=== PATIENT | male | born 1990 | race Caucasian/White ===

== ENCOUNTER 2016-03-24 17:00 | Emergency (ER) | payer BC, OTHER ==
[~2016-03-24] VITALS: Ht 180.3 cm; Wt 97.5 kg
--- NOTE | 2016-03-24 17:27 | ED GU-Male ---
General Chief Complaint: -Male Stated Complaint: SWOLLEN TESTICLE Nursing Triage Note: ARRIVED VIA AMB TO ROOM 05 WEARING A MASK. PT COMPLAINS OF RIGHT TESTICLE EDEMA, SORE THROAT AND STUFFY NOSE FOR 3 DAYS. Source: patient Exam Limitations: no limitations History of Present Illness Time seen by provider: 17:25 Initial Comments To ER with right testicular pain that began yesterday intermittently and has been constant today. He does have a history of this about 8 years ago where he states that the right testicle swelled significantly and was quite tender but resolved with antibiotics. He also reports sore throat and runny nose for 3 days. No fevers. No tenderness of the parotid glands or abdominal pains. He was vaccinated as far as he knows as a child against mumps. Timing/Duration: other (2 weeks) Severity/Quality: moderate Location: unknown Radiation: none Associated Symptoms: No abdominal pain, No dysuria, No fever/chills, No nausea/ vomiting, No polyuria, No urinary frequency Allergies and Home Medications Allergies Coded Allergies: No Known Drug Allergies (Unverified , 03/24/16) Constitutional: see HPINo chills, No fever EENTM: see HPI Respiratory: no symptoms reported Cardiovascular: no symptoms reported Gastrointestinal: No abdominal pain Genitourinary: see HPIdenies burning, pain Musculoskeletal: no symptoms reported Skin: no symptoms reported Psychiatric/Neurological: No Symptoms Reported Endocrine: No Symptoms Reported Hematologic/Lymphatic: No Symptoms Reported Past Lbsodac-Tqpmji-Rvrtle Hx Patient Social History Recent Foreign Travel: No Contact w/Someone Who Travel: No Recent Infectious Disease Expo: No Recent Hopitalizations: No Surgeries HX Surgeries: No Respiratory Hx Respiratory Disorders: No Cardiovascular Hx Cardiac Disorders: No Neurological Hx Neurological Disorders: No Genitourinary Hx Genitourinary Disorders: No Gastrointestinal Hx Gastrointestinal Disorders: No Musculoskeletal Hx Musculoskeletal Disorders: No Endocrine Hx Endocrine Disorders: No Cancer Hx Cancer: Yes Cancer: Skin Psychosocial Hx Psychiatric Problems: No Integumentary HX Skin/Integumentary Disorder: Yes (HX OF STAFF BACK OF NECK. ) Skin/Integumentary Disorders: Eczema Physical Exam Vital Signs Vital Sign - Last 12Hours 03/24/16 17:00 Temp 98.0 Pulse 71 Resp 18 B/P 134/87 Pulse Ox 97 Capillary Refill : Less Than 3 Seconds General Appearance: WD/WN no apparent distress HEENT: PERRL/EOMI normal ENT inspection Neck: non-tender full range of motion Respiratory: normal breath sounds no respiratory distress no accessory muscle use Gastrointestinal: normal bowel sounds non tender soft Male: normal genitalia testicular tenderness other (no testicular swelling that is apparent or erythema.) Extremities: normal range of motion non-tender Neurologic/Psychiatric: alert normal mood/affect oriented x 3 Skin: normal color warm/dry Progress/Results/Core Measures Results/Orders Lab Results Laboratory Tests Test 03/24/16 17:30 Range/Units Urine Amorphous Sediment FEW ROBBIN PHOSPHATE H /LPF Urine Bacteria NEGATIVE /HPF Urine Bilirubin NEGATIVE NEGATIVE Urine Casts NONE /LPF Urine Clarity CLEAR Urine Color YELLOW Urine Crystals PRESENT H /LPF Urine Culture Indicated NO Urine Glucose (UA) NEGATIVE NEGATIVE Urine Ketones NEGATIVE NEGATIVE Urine Leukocyte Esterase 1+ H NEGATIVE Urine Mucus LARGE H /LPF Urine Nitrite NEGATIVE NEGATIVE Urine Protein NEGATIVE NEGATIVE Urine RBC NONE /HPF Urine RBC (Auto) NEGATIVE NEGATIVE Urine Specific [place] 1.010 L 1.016-1.022 Urine Urobilinogen 1 NORMAL MG/DL Urine WBC 0-2 /HPF Urine pH 8 5-9 My Orders Orders-ALESHA CEDEÑO APRN Ua Culture If Indicated (03/24/16 17:16) Us Scrotum (Testicle) 35120 (03/24/16 17:16) Neis Will Dna Urine Test (03/24/16 18:00) Chlamydia Dna (03/24/16 18:00) Sulfamethoxazole/Trimet Ds Tab (Bactrim (03/24/16 18:15) Vital Signs/I&O Vital Sign - Last 12Hours 03/24/16 17:00 Temp 98.0 Pulse 71 Resp 18 B/P 134/87 Pulse Ox 97 Blood Pressure Mean: 103 Departure Communication Progress Notes 1738-I discussed the case with Margie Coles from [facility] of [facility] environment. Given the patient's symptoms she does recommend testing with a buccal swab for mumps and a nasopharyngeal respiratory viral panel. She does not suggest drying and IgG/IgM titer for mumps since he isvaccinated Impression Impression: Primary Impression: Epididymoorchitis Disposition: 01 HOME, SELF-CARE Condition: Improved Departure-Patient Inst. Decision time for Depature: 18:00 Referrals: NO,LOCAL PHYSICIAN (PCP) Primary Care Physician Patient Instructions: Epididymitis (DC) Add. Discharge Instructions: 1. Antibiotics as directed 2. Limit contact with other people especially those were not immunized against mumps for the next week until we call you with results. 3. If your urine grows a bacteria that needs a different antibiotic we will call you 4. Antibiotic as directed All discharge instructions reviewed with patient and/or family. Voiced understanding. Scripts Tramadol HCl (Ultram)50 Mg [id number] Mg PO Q6H PRN PAIN #10 TAB Prov:ALESHA CEDEÑO COLD STORAGE WORKER 03/24/16 Sulfamethoxazole/Trimethoprim (Bactrim Ds Tablet)1 Each Tablet1 Each PO BID #20 TAB Prov:ALESHA CEDEÑO C[employer] STORAGE WORKER 03/24/16 ALESHA CEDEÑO APRN Mar 24, 2016 17:27
[2016-03-24 17:38] LABS: BILIRUBIN,URINE NEGATIVE (NEGATIVE); KETONES,URINE NEGATIVE (NEGATIVE); LEUKOCYTE ESTERASE ,URINE 1+ (NEGATIVE); NITRITE,URINE NEGATIVE (NEGATIVE); PH,URINE 8 (5-9); PROTEIN,URINE NEGATIVE (NEGATIVE); UROBILINOGEN,URINE 1 MG/DL (NORMAL)
[2016-03-24 17:49] LABS: WBC,URINE 0-2 /HPF
[2016-03-24] MEDS ORDERED: TRAM-42 PO (18:04)
[2016-03-24] MEDS ORDERED: SULF1TAB35 PO (18:04)
--- NOTE | 2016-03-24 18:07 | Diagnostic Imaging Report ---
INDICATION: Right testicular pain and swelling. COMPARISON: None. TECHNIQUE: Routine grayscale color-flow and duplex evaluation of the bilateral intrascrotal contents was performed. FINDINGS: Right testicle measures 4.3 x 2.5 x 3.6 cm and the left measures 4.3 x 2.5 x 3.8 cm. Parenchyma of the right testicle is heterogeneous. No focal mass is identified. Color flow images, however, show significant hyperemia to the testicular parenchyma, as well as the right epididymis. Findings are consistent with epididymoorchitis. Small right-sided hydrocele is also noted. Parenchyma of the left testicle is homogeneous. No focal masses are seen on the left. Color flow images show normal vascularity to the left testicle and left epididymis. IMPRESSION: Sonographic findings consistent with right-sided epididymal orchitis. Dictated by: Dictated on workstation # [id number]
[2016-03-24] MEDS ORDERED: TRIM/SULFAMETH 160/800 (SEPTRA DS) TAB PO ONE (18:15)
[2016-03-24 18:17] VITALS: BP 128/82
[2016-03-28 08:46] LABS: NEISSERIA GONORRHEA DNA URINE Negative (Negative)
[2016-03-28 08:47] LABS: CHLAMYDIA DNA PROBE PT Negative (Negative)
== END 2016-03-24 18:17 | disposition home or self-care (01) ==
LOC: ER 17:03
DX: N45.3 Epididymo-orchitis (principal); J02.9 Acute pharyngitis, unspecified
CPT/HCPCS: 36415; 76870; 81000; 87491; 87591; 87798; 99282

== ENCOUNTER 2018-05-19 04:11 | Emergency (ER) | payer BC, OTHER ==
[~2018-05-19] VITALS: Ht 180.3 cm; Wt 95.3 kg
[~2018-05-19 04:11] MED LIST: SULF1TAB35 PO; TRAM-42 PO
--- OUTSIDE RECORDS SUMMARY | 2018-05-19 04:17 | XMS REPORT | Clinical Summary ---
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 Name Role Phone PP Unavailable Allergies No Known Allergies Medications End Date Status Medication Sig Dispensed Refills Start Date Active hydrocodone-acetaminophen take 1 - 2 30 0 (NORCO) 5-325 MG Tablet by 2 ORAL route every 4 - 6 hours as needed for pain Active .reconcile (MEDICATION No Sig 1 0 LIST IMPORTED) 3 Active Problems Not on file Social History Date Tobacco Use Types Packs/Day Years Used Current Every Day Smoker Comments: Smoking History Packs/day: Daily/Chewing tobacco/2 can Sex Assigned at Date Recorded Not on file Industry Job Start Date Occupation Not on file Not on file Not on file Travel End Travel History Travel Start No recent travel history available. 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
[2018-05-19] MEDS ORDERED: PANTOPRAZOLE 40 MG (PROTONIX) VIAL IV STA (05:28)
[2018-05-19] MEDS ORDERED: LACTATED RINGERS 1,000 ML IV ONE (05:28)
[2018-05-19] MEDS ORDERED: ONDANSETRON 4 MG/2 ML (SDV) Z0FRAN IVP ONE (05:30)
--- NOTE | 2018-05-19 05:51 | ED Abdominal Pain ---
General Chief Complaint: Abdominal/GI Problems Stated Complaint: STOMACH PAIN Nursing Triage Note: Pt c/o epigastric abd pain x1 month, worse tonight. Pt reports pain is worse with movement. Pt also reports vomiting after eating and feeling of fullness. Sepsis Screen: No Definite Risk Source of Information: Patient History of Present Illness Date Seen by Provider: May 19, 2018 Time Seen by Provider: 05:15 Initial Comments PT ARRIVES VIA POV FROM HOME C/O EPIGASTRIC PAIN AND NAUSEA AND VOMITING X 1 MONTH STATES PAIN COMES AND GOES, BUT IS WORSE TONIGHT AND IS "CONSTANT" TONIGHT--BUT IS NOT PRESENT NOW PAIN INCREASES WITH ACTIVITY STATES HE "CAN'T KEEP ANYTHING DOWN" FOR A MONTH, STATES HE "VOMITS SOON HE EATS ANYTHING"---BUT HAS HAD PIZZA TODAY FOR LUNCH AND ATE SUB SANDWICH TONIGHT FOR DINNER AND KEPT THOSE DOWN. PT HAS ALSO BEEN DRINKING FLUIDS, INCLUDING ALCOHOL AND HAS KEPT THEM DOWN STATES HE STILL FEELS HUNGRY --NO LOSS OF APPETITE PT DRINKS ALCOHOL ON A REGULAR BASIS--"2 OR 3 BEERS AFTER WORK" --STATES HE HAS ONLY HAD 1 BEER TONIGHT NO PROBLEMS URINATING AND IS VOIDING A NORMAL AMOUNT NO DIARRHEA OR CONSTIPATION NO FEVER NO HISTORY OF PRIOR GI PROBLEMS HAS NOT TAKEN ANYTHING FOR SYMPTOMS HAS NOT SOUGHT CARE UNTIL TODAY [facility]CP[facility] Allergies and Home Medications Allergies Coded Allergies: No Known Drug Allergies (Unverified , 03/24/16) Home Medications Sulfamethoxazole/Trimethoprim 1 Each Tablet, 1 EACH PO BID Prescribed by: ALESHA CEDEÑO on 03/24/161803 Tramadol HCl 50 Mg Tablet, 50 MG PO Q6H PRN for PAIN Prescribed by: ALESHA CEDEÑO on 03/24/161803 Patient Home Medication List Home Medication List Reviewed: Yes Review of Systems Review of Systems Constitutional: no symptoms reported; No weight loss Respiratory: No Symptoms Reported Cardiovascular: No Symptoms Reported Gastrointestinal: See HPI, Abdominal Pain; Denies Constipated, Denies Diarrhea ; Nausea; Denies Poor Appetite, Denies Poor Fluid Intake; Vomiting Genitourinary: No Symptoms Reported Musculoskeletal: no symptoms reported Skin: no symptoms reported Psychiatric/Neurological: No Symptoms Reported Endocrine: No Symptoms Reported Hematologic/Lymphatic: No Symptoms Reported Past Urtwsvk-Sapnjv-Atpnmp Hx Patient Social History Alcohol Use: Regular Use ("2 OR 3 BEERS" AFTER WORK AND ALSO DRINKS ON WEEKENDS ) Recreational Drug Use: Yes (HC) Smoking Status: Never a Smoker Type Used: Smokeless Tobacco (CHEWS TOBACCO DAILY) Recent Foreign Travel: No Contact w/Someone Who Travel: No Recent Infectious Disease Expo: No Recent Hopitalizations: No Seasonal Allergies Seasonal Allergies: No Past Medical History Surgeries: No Respiratory: No Cardiac: No Neurological: No Genitourinary: No Gastrointestinal: No Musculoskeletal: No Endocrine: No Cancer: No Psychosocial: No Integumentary: Yes Eczema Blood Disorders: No Physical Exam Vital Signs Vital Signs - First Documented 05/19/18 04:50 Temp 97.9 Pulse 81 Resp 18 B/P (MAP) 130/93 (105) Pulse Ox 99 O2 Delivery Room Air Capillary Refill : Less Than 3 Seconds Height/Weight/BMI Height: 5'11.00" Weight: 210lbs. oz. 95.921418fb; BMI Method:Stated General Appearance: WD/WN, no apparent distress, other (SLEEPING VERY SOUNDLY, LAYING COMPLETELY OUTSTRETCHED, HAT OVER FACE, ARMS /HANDS RESTING ON UPPER ABDOMEN. WALKS UPRIGHT AND MOVES WITHOUT DIFFICULTY ) Respiratory: normal breath sounds, no respiratory distress, no accessory muscle use Cardiovascular: regular rate, rhythm, no murmur Gastrointestinal: normal bowel sounds, soft; No distended, No guarding, No rebound; tenderness (EPIGASTRIC); No hernia Extremities: normal inspection Back: normal inspection, no CVA tenderness Neurologic/Psychiatric: inspector watch parts II-XII nml as tested, no motor/sensory deficits, alert, normal mood/affect, oriented x 3 Skin: normal color, warm/dry, tattoos/piercings Progress/Results/Core Measures Results/Orders Lab Results Laboratory Tests Test 05/19/18 05:45 05/19/18 05:48 Range/Units Urine Color YELLOW Urine Clarity CLEAR Urine pH 6.5 5-9 Urine Specific [place] 1.010 L 1.016-1.022 Urine Protein NEGATIVE NEGATIVE Urine Glucose (UA) NEGATIVE NEGATIVE Urine Ketones NEGATIVE NEGATIVE Urine Nitrite NEGATIVE NEGATIVE Urine Bilirubin NEGATIVE NEGATIVE Urine Urobilinogen NORMAL NORMAL MG/DL Urine Leukocyte Esterase NEGATIVE NEGATIVE Urine RBC (Auto) NEGATIVE NEGATIVE Urine RBC NONE /HPF Urine WBC NONE /HPF Urine Squamous Epithelial Cells 0-2 /HPF Urine Crystals NONE /LPF Urine Bacteria NEGATIVE /HPF Urine Casts NONE /LPF Urine Mucus SMALL H /LPF Urine Culture Indicated NO Urine Opiates Screen NEGATIVE NEGATIVE Urine Oxycodone Screen NEGATIVE NEGATIVE Urine Methadone Screen NEGATIVE NEGATIVE Urine Propoxyphene Screen NEGATIVE NEGATIVE Urine Barbiturates Screen NEGATIVE NEGATIVE Ur Tricyclic Antidepressants Screen NEGATIVE NEGATIVE Urine Phencyclidine Screen NEGATIVE NEGATIVE Urine Amphetamines Screen NEGATIVE NEGATIVE Urine Methamphetamines Screen NEGATIVE NEGATIVE Urine Benzodiazepines Screen NEGATIVE NEGATIVE Urine Cocaine Screen NEGATIVE NEGATIVE Urine Cannabinoids Screen NEGATIVE NEGATIVE White Blood Count 8.0 4.3-11.0 10^3/uL Red Blood Count 5.07 4.35-5.85 10^6/uL Hemoglobin 14.8 13.3-17.7 G/DL Hematocrit 43 40-54 % Mean Corpuscular Volume 84 80-99 FL Mean Corpuscular Hemoglobin 29 25-34 PG Mean Corpuscular Hemoglobin Concent 35 32-36 G/DL Red Cell Distribution Width 14.5 10.0-14.5 % Platelet Count 186 130-400 10^3/uL Mean Platelet Volume 11.5 H 7.4-10.4 FL Neutrophils (%) (Auto) 65 42-75 % Lymphocytes (%) (Auto) 22 12-44 % Monocytes (%) (Auto) 11 0-12 % Eosinophils (%) (Auto) 1 0-10 % Basophils (%) (Auto) 0 0-10 % Neutrophils # (Auto) 5.2 1.8-7.8 X 10^3 Lymphocytes # (Auto) 1.8 1.0-4.0 X 10^3 Monocytes # (Auto) 0.9 0.0-1.0 X 10^3 Eosinophils # (Auto) 0.1 0.0-0.3 10^3/uL Basophils # (Auto) 0.0 0.0-0.1 10^3/uL Prothrombin Time 13.8 12.2-14.7 SEC INR Comment 1.0 0.8-1.4 Activated Partial Thromboplast Time 38 H 24-35 SEC Sodium Level 142 135-145 MMOL/L Potassium Level 3.5 L 3.6-5.0 MMOL/L Chloride Level 108 H 98-107 MMOL/L Carbon Dioxide Level 24 21-32 MMOL/L Anion Gap 10 5-14 MMOL/L Blood Urea Nitrogen 7 7-18 MG/DL Creatinine 0.91 0.60-1.30 MG/DL Estimat Glomerular Filtration Rate > 60 BUN/Creatinine Ratio 8 Glucose Level 96 70-105 MG/DL Calcium Level 9.7 8.5-10.1 MG/DL Corrected Calcium 8.5-10.1 MG/DL Magnesium Level 2.3 1.8-2.4 MG/DL Total Bilirubin 0.5 0.1-1.0 MG/DL Aspartate Amino Transf (AST/SGOT) 17 5-34 U/L Alanine Aminotransferase (ALT/SGPT) 15 0-55 U/L Alkaline Phosphatase 70 40-136 U/L Total Protein 7.7 6.4-8.2 GM/DL Albumin 4.7 H 3.2-4.5 GM/DL Amylase Level 42 25-125 U/L Lipase 24 8-78 U/L Serum Alcohol < 10 <10 MG/DL My Orders Orders - LINO RICHARD DO Ct Abdomen/Pelvis W (05/19/18 05:28) Acute Abd Series (05/19/18 05:28) Alcohol (05/19/18 05:28) Amylase (05/19/18 05:28) Cbc With Automated Diff (05/19/18 05:28) Comprehensive Metabolic Panel (05/19/18 05:28) Drug Screen Stat (Urine) (05/19/18 05:28) Lipase (05/19/18 05:28) Magnesium (05/19/18 05:28) Protime With Inr (05/19/18 05:28) Partial Thromboplastin Time (05/19/18 05:28) Ua Culture If Indicated (05/19/18 05:28) Ondansetron Injection (Zofran Injectio (05/19/18 05:30) Saline Lock/Iv-Start (05/19/18 05:28) Lactated Ringers (Lr 1000 Ml Iv Solution (05/19/18 05:28) Pantoprazole Injection (Protonix Injecti (05/19/18 05:28) Medications Given in ED Current Medications Medications Dose Ordered Sig/Geoffrey Route Start Time Stop Time Status Last Admin Dose Admin Lactated Ringer's 1,000 ml @ 0 mls/hr Q0M ONCE IV 05/19/18 05:28 05/19/18 05:32 DC 05/19/18 05:56 1,000 MLS/HR Ondansetron HCl 8 mg ONCE ONCE IVP 05/19/18 05:30 05/19/18 05:32 DC 05/19/18 05:56 8 MG Vital Signs/I&O 05/19/18 04:50 Temp 97.9 Pulse 81 Resp 18 B/P (MAP) 130/93 (105) Pulse Ox 99 O2 Delivery Room Air Blood Pressure Mean: 105 Progress Progress Note : Progress Note ASYMPTOMATIC DURING ER STAY SLEPT THROUGH NEARLY THE ENTIRE ER STAY Diagnostic Imaging Comments ABDOMEN XRAYS--NO ACUTE PROCESS CT ABDOMEN/PELVIS--NO ACUTE PROCESS PER RADIOLOGIST REPORTS @ 0750 Reviewed: Reviewed by Me Departure Impression Primary Impression: Epigastric abdominal pain Additional Impressions: Nausea & vomiting POSSIBLE GASTRITIS Disposition: HOME, SELF-CARE Condition: Improved Departure-Patient Inst. Referrals: NO,LOCAL PHYSICIAN (PCP) Primary Care Physician Patient Instructions: Acute Abdomen (Belly Pain), Adult (DC), Alcohol Abuse and Alcoholism (DC), Gastritis (DC) Add. Discharge Instructions: NO ALCOHOL!! CLEAR LIQUIDS--WATER, BROTH, JELLO, GATORADE BRATS DIET--BANANAS, RICE, APPLESAUCE, TOAST, SALTINES FOLLOW UP WITH [facility] THIS WEEK FOR FURTHER CARE All discharge instructions reviewed with patient and/or family. Voiced understanding. Scripts Pantoprazole Sodium (Protonix) 40 Mg Tablet. 40 MG PO DAILY, #15 TAB Prov: LINO RICHARD DO 05/19/18 Sucralfate (Carafate) 1 Gm Tablet 1 GM PO [place], #60 TAB Prov: LINO RICHARD DO 05/19/18 LINO RICHARD DO May 19, 2018 05:51
[2018-05-19 05:56] LABS: BASOPHILS % (AUTO) 0 % (0-10); EOSINOPHILS # (AUTO) 0.1 10^3/uL (0.0-0.3); EOSINOPHILS % (AUTO) 1 % (0-10); HEMATOCRIT 43 % (40-54); HEMOGLOBIN 14.8 G/DL (13.3-17.7); LYMPHOCYTES # (AUTO) 1.8 X 10^3 (1.0-4.0); LYMPHOCYTES % (AUTO) 22 % (12-44); MEAN CORPUSCULAR HEMOGLOBIN 29 PG (25-34); MEAN CORPUSCULAR HGB CONC 35 G/DL (32-36); MEAN CORPUSCULAR VOLUME 84 FL (80-99); MEAN PLATELET VOLUME 11.5 FL (7.4-10.4); MONOCYTES # (AUTO) 0.9 X 10^3 (0.0-1.0); MONOCYTES % (AUTO) 11 % (0-12); NEUTROPHILS # (AUTO) 5.2 X 10^3 (1.8-7.8); NEUTROPHILS % (AUTO) 65 % (42-75); PLATELET COUNT 186 10^3/uL (130-400); RED CELL DISTRIBUTION WIDTH 14.5 % (10.0-14.5)
[2018-05-19 05:56] LABS: BILIRUBIN,URINE NEGATIVE (NEGATIVE); CLARITY,URINE CLEAR; COLOR,URINE YELLOW; GLUCOSE, URINE (UA) NEGATIVE (NEGATIVE); KETONES,URINE NEGATIVE (NEGATIVE); LEUKOCYTE ESTERASE ,URINE NEGATIVE (NEGATIVE); NITRITE,URINE NEGATIVE (NEGATIVE); PH,URINE 6.5 (5-9); PROTEIN,URINE NEGATIVE (NEGATIVE); UROBILINOGEN,URINE NORMAL (NORMAL)
[2018-05-19 06:08] LABS: AMPHETAMINE SCREEN, URINE NEGATIVE (NEGATIVE); BACTERIA,URINE NEGATIVE /HPF; BARBITURATE SCREEN URINE NEGATIVE (NEGATIVE); BENZODIAZEPINES SCREEN URINE NEGATIVE (NEGATIVE); CANNABINOID SCREEN, URINE NEGATIVE (NEGATIVE); COCAINE SCREEN URINE NEGATIVE (NEGATIVE); METHADONE STAT NEGATIVE (NEGATIVE); METHAMPHETAMINE SCREEN URINE S NEGATIVE (NEGATIVE); OPIATE SCREEN URINE NEGATIVE (NEGATIVE); OXYCODONE STAT NEGATIVE (NEGATIVE); PROPOXYPHENE STAT NEGATIVE (NEGATIVE); SQUAMOUS EPITHELIAL CELL,UR 0-2 /HPF; TRICYCLIC ANTIDEPRESSANTS SCRE NEGATIVE (NEGATIVE)
[2018-05-19 06:10] LABS: PROTHROMBIN TIME PATIENT 13.8 SEC (12.2-14.7)
[2018-05-19 06:19] LABS: ALANINE AMINOTRANSFERASE 15 U/L (0-55); ALBUMIN 4.7 GM/DL (3.2-4.5); ALKALINE PHOSPHATASE 70 U/L (40-136); AMYLASE 42 U/L (25-125); BILIRUBIN,TOTAL 0.5 MG/DL (0.1-1.0); BUN/CREATININE RATIO 8; CALCIUM 9.7 MG/DL (8.5-10.1); CARBON DIOXIDE 24 MMOL/L (21-32); CHLORIDE 108 MMOL/L (98-107); CREATININE SERUM 0.91 MG/DL (0.60-1.30); GFR ESTIMATED > 60; GLUCOSE 96 MG/DL (70-105); LIPASE 24 U/L (8-78); MAGNESIUM 2.3 MG/DL (1.8-2.4); POTASSIUM 3.5 MMOL/L (3.6-5.0); SODIUM 142 MMOL/L (135-145); TOTAL PROTEIN 7.7 GM/DL (6.4-8.2)
--- NOTE | 2018-05-19 07:00 | NUR ---
ASSUMED CARE OF PT.
--- NOTE | 2018-05-19 07:09 | Diagnostic Imaging Report ---
ACUTE ABD SERIES Indication: Abdominal pain. Comparison: None available. Findings: No focal airspace disease in the visualized lungs. Please note that the posterior lower lobes are poorly evaluated by portable radiography. No pleural effusion or pneumothorax. Normal cardiomediastinal silhouette. Impression: No acute cardiopulmonary process by portable radiography. Dictated by: Dictated on workstation # [id number]
--- NOTE | 2018-05-19 07:25 | NUR ---
RESTING IN BED. DENIES NEEDS AT THIS TIME. NOTIFIED WE WERE WAITING ON RESULTS OF CT.
--- NOTE | 2018-05-19 07:31 | Diagnostic Imaging Report ---
PROCEDURE: CT abdomen and pelvis with contrast. TECHNIQUE: Multiple contiguous axial images were obtained through the abdomen and pelvis after administration of intravenous contrast. Auto Exposure Controls were utilized during the CT exam to meet ALARA standards for radiation dose reduction. INDICATION: Abdominal pain COMPARISON: None available. FINDINGS: Lower chest: The lung bases are clear. No pericardial or pleural effusion. Peritoneum: No free intraperitoneal air or fluid. Liver and biliary system: The liver is normal. The gallbladder is normal. No biliary duct dilation. Spleen and Pancreas: Spleen is normal. The pancreas enhances normally without mass lesion or peripancreatic inflammatory changes. Adrenals: Normal. tract: The kidneys enhance normally without suspicious mass or obstruction. Urinary bladder is distended without wall thickening. Prostate is not enlarged. GI tract: Stomach is decompressed. No bowel obstruction. No pericolonic inflammatory changes. Normal appendix. Vasculature and Lymph nodes: Normal caliber aorta. No abdominal or pelvic lymphadenopathy. Musculoskeletal: No concerning osseous lesion. IMPRESSION: 1. No acute obstructive or inflammatory process in the abdomen or pelvis. 2. Findings are in agreement with the preliminary report. Dictated by: Dictated on workstation # [id number]
[2018-05-19] MEDS ORDERED: PANT40TA2 PO ×2 (07:54→08:03)
[2018-05-19] MEDS ORDERED: SUCR1TAB36 PO ×2 (07:54→08:03)
[2018-05-19] MEDS ORDERED: ONDA4TAB11 PO ×2 (08:02→08:03)
[2018-05-19 08:33] VITALS: BP 122/77
== END 2018-05-19 08:33 | disposition home or self-care (01) ==
LOC: EDUNIT# 04:11 → ER 04:13
DX: R10.13 Epigastric pain (principal); R11.2 Nausea with vomiting, unspecified; F12.10 Cannabis abuse, uncomplicated; F17.220 Nicotine dependence, chewing tobacco, uncomplicated
CPT/HCPCS: 36415; 74022; 74177; 80053; 80306; 80320; 81000; 82150; 83690; 83735; 85025; 85610; 85730